=== PATIENT | female | born 1980 | race African-American/Black ===

== ENCOUNTER → 2016-07-22 | Outpatient (CLI) | payer SELFPAY ==
[~2016-07-22] MED LIST: AUGMENTIN PO; HYDROCHLOROTHIA25 MG PO; MOTRIN600 M1 PO; MULTI VITAMIN1 EACH PO; PRENATAL GUMMI1 EACH PO
== END | disposition home or self-care (01) ==
LOC: CBAR 07:55
DX: Z01.818 Encounter for other preprocedural examination (principal); E66.01 Morbid (severe) obesity due to excess calories
CPT/HCPCS: G0463

== ENCOUNTER → 2016-10-28 | Outpatient (CLI) | payer BC ==
--- NOTE | ~2016-10-28 | CR63 ---
[facility] A Service of [facility] & [facility] RADIOLOGY TEXT RESULTS PATIENT: MARILYN NICKERSON LOCATION: [facility] : 76 UNIT #: [id number] AGE: [address]: Darius Elam MD SEX: F ORDER DR: [id number] [facility] [address] [place], [place] [id number] O MR#: [id number] Acc #: [id number] NAME: MARILYN NICKERSON : 1980 SEX: F STUDY DATE/TIME: 10/28/2016 8:48 UNIT: [facility] ROOM: STUDY DESCRIPTION: CR Chest 2 View Attending Physician: Darius Elam M.D. Referring Physician: Darius Elam M.D. Ordering Physician: Darius Elam M.D. Primary Care Physician: Yoko Ibrahim A.P.R.N. MEDICAL IMAGING REPORT This report is preliminary unless electronic signature is present EXAM 2 views of the chest. COMPARISON None INDICATIONS 36-year-old female. Preop respiratory exam prior to gastric Lap-Band placement and possible repair of periesophageal hernia repair. FINDINGS Cardiomediastinal silhouette is normal. No evidence of pneumothorax, pleural effusion, or acute airspace disease. Minimal multilevel anterior osteophyte formation of the thoracic spine. IMPRESSION No acute radiographic abnormality of the chest. Normal heart size. No convincing evidence of hiatal hernia. Dictated by... Matt Palafox M.D. THIS IS AN ELECTRONICALLY VERIFIED REPORT Matt Palafox M.D. at 11/02/2016 6:12 PM TAE/elisha TD: 10/28/2016 19:02 JOB #: [id number] MEDICAL IMAGING REPORT Page 1 of 1 COPY
--- NOTE | ~2016-10-28 | EKG ---
PATIENT: MARILYN NICKERSON UNIT #: [id number] Ventricular Rate: 80 BPM Atrial Rate: 80 BPM P-R Interval: 166 ms QRS Duration: 78 ms Q-T Interval: 348 ms QTC Calculation(Bezet): 401 ms P [place]: 53 degrees Calculated R [place]: 32 degrees Calculated T [place]: 27 degrees Diagnosis Line: Normal sinus rhythm Diagnosis Line: Possible Left atrial enlargement Diagnosis Line: Borderline ECG Diagnosis Line: No previous ECGs available Diagnosis Line: Confirmed by JENNIFER ARROYO MD ([id number]) on Diagnosis Line: 10/28/2016 11:38:58 AM INTERPRETING MD: DINA CISNEROS
--- NOTE | ~2016-10-28 | CR97 ---
[facility] A Service of [facility] RADIOLOGY TEXT RESULTS PATIENT: MARILYN NICKERSON LOCATION: [facility] : 76 UNIT #: [id number] AGE: [address]: Darius Elam MD SEX: F ORDER DR: [id number] [place] [id number] [facility] [place], [place] [address] [id number] O MR#: [id number] Acc #: [id number] NAME: MARILYN NICKERSON : 1980 SEX: F STUDY DATE/TIME: 10/28/2016 9:08 UNIT: [facility] ROOM: STUDY DESCRIPTION: CR Esophagram Attending Physician: Darius Elam M.D. Referring Physician: Darius Elam M.D. Ordering Physician: Darius Elam M.D. Primary Care Physician: Yoko Ibrahim A.P.R.N. MEDICAL IMAGING REPORT This report is preliminary unless electronic signature is present EXAM Single contrast barium esophagram INDICATION Shortness of breath at times. This is a preoperative examination prior to laparoscopic gastric banding procedure. Patient reports she has been short of breath for the past 5 years. TECHNIQUE Patient was administered thin barium and multiple fluoroscopic images were obtained. FINDINGS There is no evidence of stricture or mass lesion. Esophageal motility appeared within normal limits. No hiatal hernia was seen. There is no evidence of reflux. Total fluoroscopy time was 0.4 minutes and a total of 9 fluoroscopic images were obtained. IMPRESSION Normal single contrast barium esophagram. Dictated by... Alice Parrish M.D. THIS IS AN ELECTRONICALLY VERIFIED REPORT Alice Parrish M.D. at 10/31/2016 4:54 PM AFF/mjlandon TD: 10/31/2016 14:35 JOB #: [id number] MEDICAL IMAGING REPORT [facility] A Service [facility] RADIOLOGY TEXT RESULTS PATIENT: MARILYN NICKERSON LOCATION: [facility] #: [id number] : 76 UNIT #: [id number] AGE: [address]: Darius Elam MD SEX: F ORDER DR: Page 1 of 1 COPY
[2016-10-28 10:00] LABS: HEMATOCRIT 34.6 % (35.0-45.0); HEMOGLOBIN 11.8 gm/dL (12.0-16.0); MEAN CELL VOLUME 78.9 FL (83-96); MEAN CORPUSCULAR HGB CONC 34.2 g/dL (30-36); RED BLOOD COUNT 4.39 X10e (3.90-5.30); RED CELL DISTRIBUTION WIDTH 15.1 % (11.0-15.5)
[2016-10-28 11:01] LABS: ALBUMIN SERUM 3.4 g/dL (3.5-5.0); CREATININE SERUM 0.8 mg/dL (0.6-1.4); GLOM FILT RATE Estimated 108.5 mL/min (>60); PROTEIN TOTAL SERUM 7.4 g/dL (6.0-8.3)
== END | disposition home or self-care (01) ==
LOC: CRAD 08:34 → CAMB 10:00
PROVIDERS: Surgery
DX: Z01.818 Encounter for other preprocedural examination (principal)
CPT/HCPCS: 36415; 71020; 74220; 80053; 80061; 84443; 85027; 93005